=== PATIENT | male | born 1980 | race Two or more races ===

== ENCOUNTER 2018-02-11 10:02 | Emergency (ER) | payer OTHER ==
[~2018-02-11] VITALS: Ht 167.6 cm; Wt 74.8 kg
[2018-02-11 10:19] VITALS: BP 138/94
--- NOTE | 2018-02-11 11:24 | Diagnostic Imaging Report ---
Indication: Pain, trauma Technique: 3 views of the right thumb Comparison: none Findings: No acute fractures. No dislocations. The joint spaces are preserved Impression: Negative
[2018-02-11] MEDS ORDERED: Lidocaine 2% MPF 5ml Vial INJ ONE (12:00)
[2018-02-11 13:06] VITALS: BP 129/87
[2018-02-11] MEDS ORDERED: Bacitracin Oint UD TOPIC ONE (13:27)
--- NOTE | 2018-02-11 13:38 | Emergency Room Report ---
History of Present Illness General Chief Complaint: Upper Extremity Injury Source: Patient Present Illness HPI This patient was at work. He states he was working on a vehicle and had an accident and crushed his left thumb. He has a laceration of the tip of the left thumb. He also has a skin avulsion on the right thumb. He did have a tetanus shot 2 years ago. He has no other complaints. Allergies: Coded Allergies: No Known Allergies (Unverified , 02/11/18) Patient History Past Medical History: see triage record Past Surgical History: none Social History: Denies: smoking, alcohol use, drug use Reviewed Nursing Documentation: PMH: Agreed; PSxH: Agreed Nursing Documentation-PMH Past Medical History: No Stated History Review of Systems All Other Systems: negative except mentioned in HPI Physical Exam Vital Signs Date Time Temp Pulse Resp B/P (MAP) Pulse Ox O2 Delivery O2 Flow Rate FiO2 02/11/18 10:09 98.1 68 20 138/94 99 Room Air 98.1 Sp02 EP Interpretation: reviewed, normal General Appearance: no apparent distress, alert, GCS 15, non-toxic Head: normocephalic, atraumatic Eyes: bilateral eye normal inspection, bilateral eye PERRL ENT: hearing grossly normal, normal pharynx, no angioedema, normal voice Neck: full range of motion, supple/symm/no masses Respiratory: no respiratory distress, no retraction, no accessory muscle use, speaking full sentences Rectal: deferred Musculoskeletal: back normal, gait/station normal, normal range of motion, other - L. fingertip partial tip avulsion w/o bone involvement. 1mm fingernail involvement. Neurologic: alert, oriented x3, responsive, motor strength/tone normal, sensory intact, speech normal Psychiatric: judgement/insight normal, memory normal, mood/affect normal, no suicidal/homicidal ideation Skin: warm/dry, well hydrated, other - See above in [facility] Procedures Laceration/Wound Repair Laceration/Wound Repair : Consent: Verbal Wound Location: upper extremity Wound's Depth, Shape: flap, nail-avulsed, contused tissue Wound Length (cm): 2 Wound Explored: clean Irrigated w/ Saline (ccs): 1000 Anesthesia: other - 2% lidocaine Volume Anesthetic (ccs): 5 Wound Debrided: minimal Wound Repaired With: sutures Suture Size/Type: 5:0, 3:0, nylon Number Deep Layer Sutures: 6 Patient Tolerated: Well Complications: None Medical Decision Making Diagnostic Impression: Primary Impression: Fingertip avulsion ER Course This patient is status post partial fingertip avulsion. There was no bony involvement. The wound was repaired with sutures. I will place the patient on prophylactic antibiotics. The patient was also instructed to follow-up closely with a hand surgeon and his Workmen's Comp. The patient was educated on the possibility that the tip would not heal well. The patient was given close return precautions and follow up instructions. Other X-Ray Diagnostic Results Other X-Ray Diagnostic Results : X-Ray ordered: L. thumb # of Views/Limited Vs Complete: Complete Indication: Other - trauma EP Interpretation: No Interpretation: no fractures Impression: No acute disease Electronically Signed by: Pricila Last Vital Signs Date Time Temp Pulse Resp B/P (MAP) Pulse Ox O2 Delivery O2 Flow Rate FiO2 02/11/18 13:06 98.1 87 15 129/87 99 Room Air 98.1 Status: improved Disposition: HOME, SELF-CARE Condition: Improved Referrals: NOT CHOSEN ASHOK/,REFERRING (PCP) Briana Lees DO Feb 11, 2018 13:38
[2018-02-11] MEDS ORDERED: CEPHALEXIN500 MG ORAL (13:40)
[2018-02-11 14:01] VITALS: BP 123/74
== END 2018-02-11 14:10 | disposition home or self-care (01) ==
LOC: EMR 11:10
DX: S61.112A Laceration without foreign body of left thumb with damage to nail, initial encounter (principal); W23.0XXA Caught, crushed, jammed, or pinched between moving objects, initial encounter; Y92.89 Other specified places as the place of occurrence of the external cause; Y99.0 Civilian activity done for income or pay
CPT/HCPCS: 99283